=== PATIENT | male | born 1950 | race Caucasian/White ===

== ENCOUNTER → 2017-01-08 | Outpatient (CLI) | payer MEDICARE ==
--- NOTE | 2017-01-08 09:50 | US ---
EXAMINATION TYPE: US abdomen limited DATE OF EXAM: 01/08/2017 COMPARISON: NONE CLINICAL HISTORY: R94.5 Abnormal results of liver function studies. Elevated LFT's, pt states ETOH ab use EXAM MEASUREMENTS: Liver Length: 17.7 cm Gallbladder Wall: 0.7 cm CBD: 0.5 cm Right Kidney: 12.5 x 5.3 x 5.0 cm Pancreas: Obscured by bowel gas Liver: Left lobe enlarged, heterogeneous, lobulated contour compatible with probable cirrhosis Gallbladder: Gallstones with thickened wall Evidence for sonographic Lion's sign: No CBD: wnl Right Kidney: wnl Moderate ascites present IMPRESSION: 1. Cirrhotic liver disease. 2. Gallstones without wall thickening is nonspecific. 3. Ascites.
== END | disposition home or self-care (01) ==
LOC: RADUSWWP 09:20
PROVIDERS: ATTEND Family Medicine
DX: K74.60 Unspecified cirrhosis of liver (principal); R18.8 Other ascites; K80.80 Other cholelithiasis without obstruction
CPT/HCPCS: 76705

== ENCOUNTER → 2018-05-27 | Outpatient (CLI) | payer MEDICARE ==
--- NOTE | 2018-05-27 15:18 | US ---
EXAMINATION TYPE: US liver DATE OF EXAM: 05/27/2018 COMPARISON: US CLINICAL HISTORY: K70.31 Alcoholic cirrhosis of liver with ascites. EXAM MEASUREMENTS: Liver Length: 15.9 cm Gallbladder Wall: 0.2 cm CBD: 0.5 cm Right Kidney: 9.7 x 5.5 x 3.9 cm Pancreas: Obscured by bowel gas Liver: fatty as is hyperechoic to right renal cortex; area of possible focal sparing (hypoechoic to remainder of liver) noted anterior left lobe on images #[id number] through #[id number] Gallbladder: wnl Evidence for sonographic Lion's sign: no CBD: wnl Right Kidney: No hydronephrosis or masses seen No ascites is seen. Liver Vasculature Assessment at [facility] for Cirrhosis Diagnosis: MPV flow is to liver; Common H epatic Artery Flow is to Liver; Hepatic Vein Flow is to IVC. IMPRESSION: 1. Mild fatty infiltration within the liver. No discrete masses are evident. Portal and hepatic arter ial flow appears normal.
== END ==
LOC: RADUSWWP 09:42
PROVIDERS: ATTEND Internal Medicine Gastroenterology
DX: K76.0 Fatty (change of) liver, not elsewhere classified (principal)
CPT/HCPCS: 76705; 93976

== ENCOUNTER → 2018-06-08 | Outpatient (CLI) | payer MEDICARE ==
--- NOTE | 2018-06-08 09:29 | US ---
EXAMINATION TYPE: US duplex aorta DATE OF EXAM: 06/08/2018 COMPARISON: NONE CLINICAL HISTORY: Z13.6 screening for cardiovascular disease. smoker, no symptoms, no family history EXAM MEASUREMENTS: Abdominal Aorta: Proximal: 2.4 x 2.2cm Mid: 2.0 x 2.0cm Distal: 1.3 x 1.4cm Bifurcation: Rt=0.8 Lt=0.8 Aorta is visualized through the bifurcation without aneurysmal change. Adjacent liver is heterogeneou sly hyperechoic suspicious for diffuse fatty infiltration. This is also noted on recent liver ultraso und May 27, 2018. IMPRESSION: No ultrasound evidence for AAA.
--- NOTE | 2018-06-08 10:48 | CTL ---
EXAMINATION TYPE: CT Low Dose Lung DATE OF EXAM ORDERED: 06/08/2018 HISTORY: . Lung cancer screening CT DLP: [address] CTDI: 1.87 mGy Automated exposure control for dose reduction was used. SCREENING VISIT: Initial COMPARISON: None TECHNIQUE: Low dose computed tomography scan was performed through the chest at 1 mm thick sections a nd reconstructed images in the coronal plane at [address] DIAGNOSTIC QUALITY: Limited, but interpretable FINDINGS: LUNG NODULES: None. LUNGS: COPD: Severity: Mild Fibrosis: Severity: None Lymph nodes: There is an enlarged pretracheal measuring 1.1 cm just above the level the regine. Addit ional enlarged adenopathy is not identified. Some fullness is within the right suprahilar region. Gil e underlying 1.6 cm adenopathy may be present. Consider CT chest with contrast for additional evaluat ion. Other findings: None RIGHT PLEURAL SPACE: Effusion: None Calcification: None Thickening: None Pneumothorax: None LEFT PLEURAL SPACE: Effusion: None Calcification: None Thickening: None Pneumothorax: None HEART: Heart Size: Normal Coronary calcification: Moderate Pericardial effusion: None OTHER FINDINGS: Upper abdomen: Normal Bony thorax: Normal Supraclavicular region: Normal Other: The ascending thoracic aorta at the level of the main pulmonary artery is 4.0 cm. The main pul monary artery the bifurcation is 2.8 cm. IMPRESSION: 1. No suspicious lung nodules. 2. Ascending thoracic aortic aneurysm of 4.0 cm. 3. Enlarged pretracheal lymph node measuring 1.1 cm. There may be some right hilar adenopathy present . CT with contrast is recommended for additional adenopathy evaluation at this time. FOLLOW UP CT CHEST RECOMMENDATION: CT chest w con to reevaluate possible right hilar adenopathy. CT LUNG RAD: Lung-Rad 2 Benign Appearance or Behavior for lung findings.
== END | disposition home or self-care (01) ==
LOC: RADCTMAIN 08:20
PROVIDERS: ATTEND Family Medicine
DX: Z12.2 Encounter for screening for malignant neoplasm of respiratory organs (principal); I71.2 Thoracic aortic aneurysm, without rupture; R59.0 Localized enlarged lymph nodes; Z13.6 Encounter for screening for cardiovascular disorders; Z87.891 Personal history of nicotine dependence
CPT/HCPCS: 93979; G0297

== ENCOUNTER → 2018-06-23 | Outpatient (CLI) | payer MEDICARE ==
[2018-06-23 10:21] LABS: Blood Urea Nitrogen 13 mg/dL (9-20)
--- NOTE | 2018-06-23 11:39 | CT ---
EXAMINATION TYPE: CT chest w con DATE OF EXAM: 06/23/2018 COMPARISON: 06/08/2018 HISTORY: abnormal ct low dose scan CT DLP: 419.2 mGycm. Automated Exposure Control for Dose Reduction was Utilized. TECHNIQUE: CT scan of the thorax is performed following with IV Contrast, patient injected with 100 mL of Isovue 300. FINDINGS: LUNGS: Extensive emphysematous changes are seen at the lung apices, a lesser degree within the mid kaylah ngs and lower lungs. This is mixed centrilobular and paraseptal. No suspicious pulmonary mass is seen . No focal consolidation, pleural effusion or pneumothorax. Main tracheobronchial tree is patent. MEDIASTINUM: Mildly enlarged pretracheal lymph node measures 1.1 cm in short axis. Right perihilar co nglomeration of lymph nodes measures approximately 1.4 cm in short axis. Punctate calcifications are seen within the pretracheal lymph node and left hilar lymph nodes. Calcified left hilar granulomas ar e also noted. Severe coronary calcifications are evident. Heart is not enlarged. No pericardial effus ion. The aortic root is mildly aneurysmal measuring 4.2 cm as is the ascending thoracic aorta measuring 4. 0 cm. Descending thoracic aorta and main pulmonary artery are within normal limits of size. OTHER: There is a nodular contour of the liver concerning for underlying hepatocellular disease. Punc dunlap are completely hypoattenuated subcentimeter hepatic lesion is present on image 75 and although t oo small to accurately characterize favored to represent a cyst given its markedly decreased attenuat ion. Simple cyst is seen within the left hepatic lobe that is also subcentimeter. Moderate multilevel degenerative change of the spine is seen. IMPRESSION: 1. There is partial visualization of an infrarenal abdominal aortic aneurysm measuring at least 4.2 x 4.0 cm. CTA abdomen could fully assess this finding. 2. Suspicion for underlying hepatocellular disease, possibly early cirrhosis as there is a nodular co ntour the liver. 3. Ascending thoracic aorta is mildly aneurysmal measuring 4.0 cm. Aortic root is also mildly aneurys mal measuring 4.2 cm. 4. There remains few prominent mediastinal lymph nodes although these are of low suspicion and possib ly reactive. Benign granulomatous change of the left hans is noted. 5. Severe coronary artery calcifications, marker of coronary artery disease. 6. Overall moderate to severe emphysema.
== END | disposition home or self-care (01) ==
LOC: RADCTMAIN 09:38
PROVIDERS: ATTEND Family Medicine
DX: J43.9 Emphysema, unspecified (principal); I25.10 Atherosclerotic heart disease of native coronary artery without angina pectoris; J84.10 Pulmonary fibrosis, unspecified; I71.4 Abdominal aortic aneurysm, without rupture; I71.2 Thoracic aortic aneurysm, without rupture
CPT/HCPCS: 82565; 84520; 71260; 36415; Q9967

== ENCOUNTER → 2018-12-14 | Outpatient (CLI) | payer MEDICARE ==
--- NOTE | 2018-12-14 09:31 | CT ---
EXAMINATION TYPE: CT angio thor/abd aorta DATE OF EXAM: 12/14/2018 COMPARISON: CT chest 06/23/2018 HISTORY: 68-year-old male Aortic aneurysm without rupture TECHNIQUE: Contiguous axial scanning of the chest, abdomen, and pelvis performed without and with IV Contrast, patient injected with 100 mL of Isovue 370. Coronal post sagittal MIP reconstructions performed. 3-D reconstructions generated on a dedicated independent workstation. CT DLP: 995.7 mGycm Automated exposure control for dose reduction was used. FINDINGS: CHEST: The heart is normal size without pericardial effusion. Coronary vessel calcifications are present in remarkable for coronary artery disease. Stable mildly enlarged precarinal lymph node of 1.1 cm. Right hilar lymph node also similar 1.3 cm. Stability suggests a benign etiology. Mild bilateral gynecomastia. Moderate to advanced centrilobular emphysema particularly in the upper lungs. Strandy scarring or atelectasis at the lung bases. No consolidation or pleural effusion. ABDOMEN: Limited arterial phase imaging of the liver, adrenal glands, kidneys, spleen, and pancreas shows no gross abnormal. Gallbladder distended at 1.8 cm wide with layering gravel. No dilated small bowel, free fluid, or free air. No mesenteric or retroperitoneal lymphadenopathy. Mild overall stool burden with sigmoid diverticulosis. No pericolonic inflammatory change. Inferior pelvis is not imaged. VASCULATURE: Aortic root is ectatic at 3.9 cm. Ascending aorta ectatic at 3.7 cm. Bovine configuration to the aortic arch. No evidence for acute intramural hematoma. Mild atherosclerotic arch calcifications are demonstrated. Upper descending thoracic aorta measures 2.9 cm. Aorta at the thoracoabdominal junction measures ectatic at 2.6 cm. Separate takeoff of the left hepatic artery directly from the aorta. There is a replaced right hepatic artery arising from the SMA. [id number] atherosclerotic narrowing at the origin of the right renal artery. 2 left renal arteries are demonstrated. Patent BRANDON. Abdominal aortic aneurysm along the inferior segment measuring 4.5 x 4.0 cm only partially imaged on the patient's 06/23/2017 exam. Aneurysm spans approximately 5.2 cm craniocaudal. Moderate atherosclerotic calcifications continue into the common iliac arteries. Aneurysmal proximal right common iliac artery at 2.2 cm and ectasia of the remainder of the vessel at 1.5 cm. Additional site of aneurysm at the right common iliac artery bifurcation measures 1.9 cm. Ectatic proximal left common iliac artery at 1.7 cm. The remainder of the left common iliac artery is also ectatic at 1.6 cm. No evidence for aortic dissection or acute intramural hematoma. Bones: Osteopenia. Degenerative disc disease and facet arthropathy within the lumbar spine. No osseous destructive process. Bridging anterior endplate spondylosis mid to lower thoracic spine. IMPRESSION: 1. INFRARENAL AAA MEASURING 4.5 X 4.0 CM EXTENDING DOWN TO THE BIFURCATION. 2. ECTATIC AORTIC ROOT AND ASCENDING THORACIC AORTA (MEASURING UP TO 3.9 CM) AND ECTATIC UPPER ABDOMINAL AORTA AT 2.6 CM. SOME VARIANT ANATOMY OF THE ABDOMINAL VISCERAL ARTERIES MENTIONED ABOVE. 3. 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 4. HYDROPIC GALLBLADDER WITH LAYERING GRAVEL. IF RIGHT UPPER QUADRANT PAIN OR CONCERN FOR EARLY ACUTE CHOLECYSTITIS, FOLLOW-UP ULTRASOUND OR HIDA SCAN. 5. COPD WITH MODERATE TO ADVANCED EMPHYSEMA, CAD, SIGMOID DIVERTICULOSIS. MTDD
== END | disposition home or self-care (01) ==
LOC: RADCTMAIN 06:52
PROVIDERS: ATTEND Family Medicine
DX: I77.810 Thoracic aortic ectasia (principal); I77.811 Abdominal aortic ectasia; I72.3 Aneurysm of iliac artery; K82.8 Other specified diseases of gallbladder; J43.9 Emphysema, unspecified; I25.10 Atherosclerotic heart disease of native coronary artery without angina pectoris; K57.30 Diverticulosis of large intestine without perforation or abscess without bleeding
CPT/HCPCS: 71275; 74175

== ENCOUNTER → 2019-05-19 | Outpatient (CLI) | payer MEDICARE ==
--- NOTE | 2019-05-19 09:04 | US ---
EXAMINATION TYPE: US abdomen limited DATE OF EXAM: 05/19/2019 COMPARISON: NONE CLINICAL HISTORY: Alcoholic Cirrhosis K70.31. EXAM MEASUREMENTS: Liver Length: 14.9 cm Gallbladder Wall: 0.3 cm CBD: 0.5 cm Right Kidney: 11.6 x 4.1 x 5.5 cm Pancreas: Obscured by bowel gas Liver: hepatopedal flow . Cirrhotic morphology of the liver. Gallbladder: cholelithiasis, trace amount of pericholecystic fluid Evidence for sonographic Lion's sign: no CBD: wnl Right Kidney: inferior pole obscured by overlying bowel gas IMPRESSION: 1. Cirrhotic morphology of the liver with hepatofugal flow of the portal vein noted. No discrete mass seen on today's exam. 2. Cholelithiasis is seen without sonographic evidence of acute cholecystitis other than a trace amou nt of pericholecystic fluid, likely sequela of the adjacent hepatocellular disease.
== END | disposition home or self-care (01) ==
LOC: RADUSWWP 07:39
PROVIDERS: ATTEND Internal Medicine Gastroenterology
DX: K80.20 Calculus of gallbladder without cholecystitis without obstruction (principal); K74.60 Unspecified cirrhosis of liver
CPT/HCPCS: 76705

== ENCOUNTER 2020-06-05 07:26 | Day surgery (SDC) | payer MEDICARE ==
[2020-05-31 12:35] VITALS: BMI 22.5
[~2020-06-05 07:26] MED LIST: LACTATED RINGERS 1,000 ML IV SCH; LIDOCAINE 1% (10MG/ML) FOR IV START INTRADERMA PRN
[2020-06-05 08:35] VITALS: RESP 16; TEMP 97.6
[2020-06-05] MEDS ORDERED: LIDOCAINE 1% INJ 10MG/ML (20 ML MDV) ONE (09:09)
[2020-06-05] MEDS ORDERED: PROPOFOL 10 MG/ML 20 ML VIAL IV ONE (09:09)
--- NOTE | 2020-06-05 09:34 | P.PCN ---
Date of Procedure: 06/05/20 Procedure(s) Performed: Brief history: Patient is a pleasant scheduled for an elective upper endoscopy as well as colonoscopy as a part of evaluation of prior history of colon polyps and screening for esophageal varices. Patient has history of liver cirrhosis. Procedure performed: Esophagogastroduodenoscopy with biopsy Colonoscopy Preoperative diagnosis: Cirrhosis of the liver/screening for esophageal varices History of colon polyps Anesthesia: MAC Procedure: After informed consent was obtained from the patient was brought into the endoscopy unit and IV sedation was administered by anesthesia under continuous monitoring. Initially upper endoscopy was done. The Olympus GF 160 video endoscope was inserted inserted into the mouth and esophagus intubated without any difficulty and was gradually advanced into the stomach and duodenum and carefully examined. The bulb and second part of the duodenum appeared normal. The scope was then withdrawn into the stomach adequately insufflated with air and upon careful examination the antrum had mild gastritis and biopsies were done from this area. The body, cardia and fundus appeared normal. The scope was then withdrawn into the esophagus. The GE junction was located at 40 cm to the incisors. It appeared regular with no erythema erosions or ulcerations. Rest of the esophagus appeared normal. There was small esophageal varices noted in the distal esophagus. Patient tolerated the procedure well. At this time the patient continued to remain sedation. Initial digital rectal examination was normal. Olympus CF 160 video colonoscope was then inserted into the rectum and gradually advanced to the cecum without any difficulty. Careful examination was performed as the scope was gradually being withdrawn. The prep was excellent. In the cecum there was a 5 mm polyp that was removed by snare polypectomy. The cecum, ascending colon, transverse colon, descending colon, sigmoid colon and rectum appeared normal. Scattered sigmoid diverticulosis seen. Retroflexion was performed in the rectum and no lesions were noted. Patient tolerated the procedure well. Impression: 1. Upper endoscopy revealed small esophageal varices and mild antral gastric. 2. Colonoscopy revealed 5 mm cecal polyp status post polypectomy and scattered sigmoid diverticulosis. Recommendations: Findings of this examination were discussed with the patient as well as her family. He was advised to follow with the biopsy results. He can have a repeat upper endoscopy in 2-3 years and repeat colonoscopy in 5 years.
[2020-06-05 09:55] VITALS: BP 111/68; PULSE 66
== END 2020-06-05 10:29 | disposition home or self-care (01) ==
LOC: ORWHC2ENDO 07:26
PROVIDERS: ATTEND Internal Medicine Gastroenterology
DX: D12.0 Benign neoplasm of cecum (principal); K57.30 Diverticulosis of large intestine without perforation or abscess without bleeding; I85.00 Esophageal varices without bleeding; K29.50 Unspecified chronic gastritis without bleeding; K74.60 Unspecified cirrhosis of liver; Z86.010 Personal history of colon polyps; I10 Essential (primary) hypertension; E78.5 Hyperlipidemia, unspecified; Z90.89 Acquired absence of other organs; F17.210 Nicotine dependence, cigarettes, uncomplicated; Z98.42 Cataract extraction status, left eye; Z98.41 Cataract extraction status, right eye; Z79.82 Long term (current) use of aspirin; Z79.899 Other long term (current) drug therapy; Z88.1 Allergy status to other antibiotic agents
CPT/HCPCS: 88305; 45385; 43239; J2001; J2704

== ENCOUNTER → 2020-06-05 | Outpatient (CLI) | payer MEDICARE ==
--- NOTE | 2020-06-05 09:34 | US ---
EXAMINATION TYPE: US liver DATE OF EXAM: 06/05/2020 COMPARISON: 05/19/[address] 12/14/2018 CLINICAL HISTORY: 69-year-old male K70.31 Alcoholic cirrhosis of liver. No pain. No prior surgeries. Patient states he has a known aneurysm that gets followed up every 6 months. TECHNIQUE: Multiple sonographic images of the right upper quadrant are obtained. FINDINGS: EXAM MEASUREMENTS: Liver Length: 13.1 cm Gallbladder Wall: 0.1 cm CBD: 0.6 cm Right Kidney: 9.8 x 5.6 x 3.9 cm Pancreas: Obscured by bowel gas Liver: Slightly coarsened appearance of the liver. No focal lesion seen. Gallbladder: mobile echogenic foci. Transverse GB measurement = 5.1 cm, mildly dilated. Evidence for sonographic Lion's sign: neg CBD: Upper limits of normal in caliber, normal given patient's age. Right Kidney: No hydronephrosis. Incidental finding: Distal aortic aneurysm= spans 5.3 cm and measures 4.4 x 5.2 cm (versus measureme nts of 4.5 x 4.[address] of 12/14/2018). IMPRESSION: 1. Vascular follow-up for the patient's distal abdominal aortic aneurysm. Current measurements are 5. 2 x 4.4 cm (versus 4.5 x 4.[address] of 12/14/2018). 2. Coarsened hepatic parenchyma in keeping with the patient's known underlying cirrhosis. No sonograp hic evidence for hepatoma. 3. Mildly hydropic gallbladder with layering gravel. Sonographic Lion sign is reportedly negative. Hydropic change may be due to fasting state. Clinically correlate.
== END ==
LOC: RADUSWWP 06:55
PROVIDERS: ATTEND Internal Medicine Gastroenterology
DX: K70.31 Alcoholic cirrhosis of liver with ascites (principal); I71.4 Abdominal aortic aneurysm, without rupture; K82.1 Hydrops of gallbladder
CPT/HCPCS: 76705

== ENCOUNTER → 2020-12-05 | Outpatient (CLI) | payer MEDICARE ==
--- NOTE | 2020-12-05 11:03 | US ---
EXAMINATION TYPE: US liver DATE OF EXAM: 12/05/2020 COMPARISON: Ultrasound 06/05/2020 CLINICAL HISTORY: K70.31 Alcoholic cirrhosis of liver w/ascites. Known cirrhosis, no symptoms EXAM MEASUREMENTS: Liver Length: 16.4 cm Gallbladder Wall: 0.2 cm CBD: 0.6 cm Right Kidney: 11.6 x 4.7 x 4.2 cm Pancreas: not seen due to bowel gas Liver: wnl Gallbladder: dependant layering stones seen Evidence for sonographic Lion's sign: no CBD: wnl Right Kidney: wnl incidental of AAA at distal aorta = 5.5 x 5.3 x 5.0cm, previous US showed measurements at 5.3 x 4.4 x 5.2cm IMPRESSION: 1. Abdominal aortic aneurysm, increasing to greater than 5 cm from previous exam. 2. Hepatomegaly
== END | disposition home or self-care (01) ==
LOC: RADUSWWP 07:36
PROVIDERS: ATTEND Internal Medicine Gastroenterology
DX: R16.0 Hepatomegaly, not elsewhere classified (principal); I71.4 Abdominal aortic aneurysm, without rupture
CPT/HCPCS: 76705

== ENCOUNTER → 2020-12-19 | Outpatient (CLI) | payer MEDICARE ==
[2020-12-19 07:27] LABS: African American GFR (CKD) >90 (>60 ml/min/1.73 sqM); Blood Urea Nitrogen 16 mg/dL (9-20); Non-African American GFR(CKD) >90 (>60 ml/min/1.73 sqM)
--- NOTE | 2020-12-19 11:20 | CT ---
EXAMINATION TYPE: CT angio thor/abd pel aorta DATE OF EXAM: 12/19/2020 COMPARISON: CTA study December 14, 2018 HISTORY: Aortic abdominal aneurysm without rupture CT DLP: 782 mGycm. Automated Exposure Control for Dose Reduction was Utilized. CONTRAST: CTA scan of the thorax, abdomen and pelvis is performed with IV Contrast, patient injected with 100 m l mL of Isovue 370. Aneurysm protocol with 3-D reconstructed images created on an independent worksta tion and reviewed. FINDINGS: Vascular: Satisfactory enhancement of the central pulmonary arteries. Ascending aorta measures up to 4.0 cm in diameter stable from prior. Bovine type arch redemonstrated which is normal variant. Mild p laque without significant stenosis redemonstrated no aneurysm in the descending thoracic aorta. Separate takeoff of the common hepatic artery from the aorta which is normal variant. Patent celiac a rtery and SMA along with right single renal artery and BRANDON. Mild to moderate mixed plaque without sig nificant stenosis. Duplicated left renal artery redemonstrated. Infrarenal AAA redemonstrated measuri ng 4.9 x 4.6 cm current study image 90 increased in size from prior. No aneurysm extension into the c ommon iliac arteries. Length of the aneurysm roughly 5.0 cm similar to prior. Moderate calcified plaque in the common iliac arteries bilaterally. Aneurysm at right-sided bifurcati on up to 1.9 cm axial image 108 is stable. Moderate plaque extends into the internal/external iliac a rteries bilaterally without significant stenosis. Mild plaque common femoral artery bilaterally witho ut significant stenosis. No linear hypodensity to suggest dissection. LUNGS: Moderate to severe underlying emphysematous changes redemonstrated greatest in the upper lungs is redemonstrated. New tiny group of micronodules in the lateral right mid lung axial image 39. Mild bibasilar linear scarring redemonstrated. No pleural effusion or pneumothorax noted. MEDIASTINUM: Stable in size 1.8 x 1.2 cm pericarinal lymph node axial image 31 with occasional puncta te calcific focus. Stable slightly less prominent right hilar lymph node axial image 38. Coronary art carmelina calcification redemonstrated. No cardiomegaly or pericardial effusion is seen. LIVER/GB: Liver is slightly small in size with lobulated contour raising concern for underlying cirrh osis, correlate clinically. Dependent small calcified gallstones. Gallbladder has distended margins b ut no surrounding inflammatory change PANCREAS: No significant abnormality is seen. SPLEEN: No significant abnormality is seen. ADRENALS: No significant abnormality is seen. KIDNEYS: No significant abnormality is seen. BOWEL: Diverticula scattered the colon greatest within sigmoid colon. No CT evidence for acute divert iculitis. GENITAL ORGANS: No gross abnormality seen. LYMPH NODES: No greater than 1cm abdominal or pelvic lymph nodes are appreciated. OSSEOUS STRUCTURES: Mild to moderate multilevel spurring in the spine. Mild to moderate multilevel di sc space narrowing in the lumbar spine greatest at L2-L3 level with vacuum disc phenomenon. OTHER: No significant additional abnormality is seen. IMPRESSION: Enlarging infrarenal AAA up to 4.9 cm currently. Stable ascending aortic aneurysm at 4.0 cm when accounting for technical differences. Stable right common iliac artery aneurysm at 1.9 cm dis tally.
== END | disposition home or self-care (01) ==
LOC: RADCTMAIN 06:34
PROVIDERS: ATTEND Thoracic Surgery (Cardiothoracic Vascular Surgery)
DX: I71.4 Abdominal aortic aneurysm, without rupture (principal); I71.2 Thoracic aortic aneurysm, without rupture; I72.3 Aneurysm of iliac artery
CPT/HCPCS: 82565; 84520; 71275; 36415; 74174; Q9967

== ENCOUNTER → 2021-07-15 | Outpatient (CLI) | payer MEDICARE ==
--- NOTE | 2021-07-15 12:27 | US ---
EXAMINATION TYPE: US liver DATE OF EXAM: 07/15/2021 COMPARISON: CT 12/19/2020 CLINICAL HISTORY: 70-year-old male K70.31 Alcoholic cirrhosis of liver with ascites. TECHNIQUE: Multiple sonographic images of the right upper quadrant are obtained. FINDINGS: EXAM MEASUREMENTS: Liver Length: 8.5 cm Gallbladder Wall: 0.2 cm CBD: 0.4 cm Right Kidney: 10.9 x 5.2 x 4.6 cm Electronic Assembler notes: Severe midline bowel gas Pancreas: Obscured by bowel gas Liver: somewhat limited visualization due to overlying bowel gas, coarsened parenchyma, nodular cont our. Within the left lobe, there is a vascular mass measuring 2.5 x 2.9 x 3.1 Gallbladder: dependant laying stones Evidence for sonographic Lion's sign: no CBD: wnl, limited views Right Kidney: wnl as seen, views somewhat limited due to overlying bowel gas IMPRESSION: 1. Cirrhotic morphology of the liver. Possible development of a 3.1 cm solid mass in the posterior le ft liver lobe. Further liver MRI evaluation recommended. 2. Numerous small layering gallstones. No biliary ductal dilatation.
== END | disposition home or self-care (01) ==
LOC: RADUSWWP 10:57
PROVIDERS: ATTEND Internal Medicine Gastroenterology
DX: K74.60 Unspecified cirrhosis of liver (principal); K80.20 Calculus of gallbladder without cholecystitis without obstruction
CPT/HCPCS: 76705

== ENCOUNTER → 2021-07-15 | Outpatient (CLI) | payer MEDICARE ==
--- NOTE | 2021-07-15 13:35 | US ---
EXAMINATION TYPE: US duplex aorta DATE OF EXAM: 07/15/2021 COMPARISON: 12/19/2020 CT and prior ultrasound 06/08/2018 CLINICAL HISTORY: 70-year-old male I71.4 AAA WITHOUT RUPTURE. TECHNIQUE: Multiple sonographic images of the abdominal aorta are obtained. FINDINGS: EXAM MEASUREMENTS: Abdominal Aorta: Proximal: obscured by overlying bowel gas Mid: 3.0 cm Distal: 6.6 cm long aneurysm measuring up to 5.1 x 4.4 cm in caliber. (Versus 5.3 x 4.9 cm on 12/04 CTA) Bifurcation: obscured by overlying bowel gas Furnace Puncher notes: Severe overlying bowel gas technically difficult very limited study. IMPRESSION: 1. Distal abdominal aortic aneurysm likely underestimated at 5.1 x 4.4 cm by ultrasound (measuring 5. 3 x 4.9 cm on the 12/19/2020 CTA). 2. There are exam limitations due to extensive overlying bowel gas.
== END | disposition home or self-care (01) ==
LOC: RADUSWWP 10:58
PROVIDERS: ATTEND Thoracic Surgery (Cardiothoracic Vascular Surgery)
DX: I71.4 Abdominal aortic aneurysm, without rupture (principal)
CPT/HCPCS: 93979

== ENCOUNTER → 2021-07-22 | Outpatient (CLI) | payer MEDICARE ==
--- NOTE | 2021-07-23 05:51 | MR ---
EXAMINATION TYPE: MR abdomen wo/w con DATE OF EXAM: 07/22/2021 COMPARISON: Ultrasound HISTORY: Abnormal imaging CONTRAST: Standard multiplanar, multisequence MRI departmental protocol images were obtained without contrast a nd with 7.5 mL intravenous Gadavist gadolinium contrast. There is decreased signal pattern in the liver on the T2 images and consistent with cirrhosis. There is 3.8 cm rounded mass in the inferior posterior right lobe of the liver. This has enhancement on the contrast images and consistent with a solid tumor. Gallbladder is distended with gallstones. There is 5.5 cm aneurysm of the lower abdominal aorta. Kidn eys show normal size and contour. No hydronephrosis. There is normal enhancement of the kidneys. No s ign of retroperitoneal adenopathy. No ascites. The spleen is intact. Stomach is intact. There is no evidence of pancreatic mass. The bile ducts are not dilated. IMPRESSION: Decreased signal in the liver consistent with cirrhosis. Solid liver mass suggestive of a tumor. No s ignificant change in size allowing for error of measurement compared to the recent ultrasound of 07/15.
== END | disposition home or self-care (01) ==
LOC: RADMRIMAIN 13:22
PROVIDERS: ATTEND Nurse Practitioner Family
DX: K74.60 Unspecified cirrhosis of liver (principal); R16.0 Hepatomegaly, not elsewhere classified
CPT/HCPCS: 74183; A9585

== ENCOUNTER → 2021-09-15 | Outpatient (CLI) | payer MEDICARE ==
[2021-09-15 12:42] LABS: African American GFR (CKD) >90 (>60 ml/min/1.73 sqM); Blood Urea Nitrogen 16 mg/dL (9-20); Non-African American GFR(CKD) >90 (>60 ml/min/1.73 sqM)
--- NOTE | 2021-09-15 22:05 | CT ---
EXAMINATION TYPE: CT chest wo/w con DATE OF EXAM: 09/15/2021 COMPARISON: CT dated 12/19/2020 HISTORY: Liver cell carcinoma CT DLP: 748.3 mGycm Automated exposure control for dose reduction was used. TECHNIQUE: CT scan of the chest is performed without and with IV Contrast, patient injected with 70 mL of Isovue 300. FINDINGS: LUNGS: Marked COPD and emphysematous changes, mainly involving the upper lobes. Bilateral basal pulmo nary fibrotic changes and subsegmental atelectasis with peripheral reticulations. Lingular millimetri c granuloma, stable. No other definite lung nodule or suspicious lung lesion. Patent trachea and main bronchi. No pleural effusion. MEDIASTINUM: 10 mm subcarinal lymph node with 10 mm precarinal lymph node 12 mm right hilar lymph nod e, stable. Other scattered smaller mediastinal lymph nodes without interval progression. No gross car diomegaly. Coronary and arterial atherosclerotic calcification. No pericardial effusion. The pulmonar y trunk measures 3 cm. The ascending aorta measures 4 cm. OTHER: Nodular outline of the liver which may suggest cirrhotic hepatic changes, please correlate th liver function tests and hepatic viral serology. Cholelithiasis. Mild bilateral gynecomastia simon es. Osteopenia. Degenerative changes of the thoracic spine. IMPRESSION: COPD changes as described above. No definite suspicious lung lesion identified. Incidental findings a s described above.
== END | disposition home or self-care (01) ==
LOC: RADCTMAIN 12:07
PROVIDERS: ATTEND Internal Medicine Transplant Hepatology
DX: C22.0 Liver cell carcinoma (principal); J44.9 Chronic obstructive pulmonary disease, unspecified
CPT/HCPCS: 82565; 84520; 71270; 36415; Q9967

== ENCOUNTER → 2022-04-20 | Outpatient (CLI) | payer MEDICARE ==
[2022-04-20 13:07] LABS: African American GFR (CKD) >90 (>60 ml/min/1.73 sqM); Blood Urea Nitrogen 16 mg/dL (9-20); Non-African American GFR(CKD) >90 (>60 ml/min/1.73 sqM)
--- NOTE | 2022-04-20 18:21 | CT ---
EXAMINATION TYPE: CT angio abdomen DATE OF EXAM: 04/20/2022 COMPARISON: 12/19/2020 INDICATION: Follow up for AAA. DLP: 672.8 mGycm, Automated exposure control for dose reduction was used. CONTRAST: 100ml mL of Isovue 370. Study performed without Oral Contrast TECHNIQUE: Axial images were obtained from above the diaphragm to the pubic rami in the axial plane a t 5 mm thick sections. Reconstructed images are reviewed on the computer in the coronal plane. Thre e-D reconstructed images performed on a separate computer by technologist presented. FINDINGS: Limited CT sections are obtained the lung bases. The lung bases are clear. The sinus changes are pr esent CT ABDOMEN: Liver: Normal Spleen: Normal Pancreas: Normal Adrenal glands: The adrenal glands are normal. Gallbladder: Gallstones are present. Kidneys: No masses are evident. No hydronephrosis is present. No cysts are present. No renal stone s are evident. Aorta: Vascular calcification is within the aorta. Celiac axis and superior mesenteric arteries are n ormal. There is a hepatic take off from the aorta. Bilateral renal arteries are evident. Duplicatio n on the left. There is an abdominal aortic aneurysm with a greatest AP dimension of 5.6 cm. This has a transverse dimension of 5.2 cm and continues to the bifurcation. (Previous measurements 4.9 x 4.6 cm) The right common iliac artery is prominent at 2.3 cm. (Previous 1.9 cm). Left common iliac artery appears normal. Abdominal aortic Aneurysm begins in the infrarenal region. Iliac vessels are tortuou s. There is some aneurysmal dilatation of the distal right common iliac artery at the bifurcation wit h a transverse dimension of 1.9 cm. The abdominal iliac distal aneurysm is stable. Inferior vena cava: Normal. IMPRESSIONS: 1. Increase in size of infrarenal abdominal aortic aneurysm currently 5.6 x 5.2 versus 4.9 x 4.6 pre vious. 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
== END | disposition home or self-care (01) ==
LOC: RADCTMAIN 12:29
PROVIDERS: ATTEND Internal Medicine Cardiovascular Disease
DX: I71.43 Infrarenal abdominal aortic aneurysm, without rupture (principal); I72.3 Aneurysm of iliac artery
CPT/HCPCS: 82565; 84520; 74175; 36415; Q9967

== ENCOUNTER → 2022-09-07 | Outpatient (CLI) | payer MEDICARE ==
[2022-09-07 16:09] LABS: Basophils # (A) 0.05 X 10*3/uL; Eosinophils # (A) 0.21 X 10*3/uL; Eosinophils % (A) 4.1 %; HCT 39.1 %; HGB 13.2 d/dL; Lymphocytes # (A) 1.31 X 10*3/uL; Lymphocytes % (A) 25.4 %; MCH 34.7 pg; MCHC 33.8 d/dL; MCV 102.9 FL; Mean Platelet Volume 10.2 FL; Monocytes # (A) 0.55 X 10*3/uL; Monocytes % (A) 10.7 %; NRBC Per 100 WBC 0 X 10*3/uL; Neutrophils # (A) 3.03 X 10*3/uL; Neutrophils % (A) 58.6 %; Platelet Count 192 X 10*3/uL; RDW 13.3 %; WBC 5.16 X 10*3/uL
[2022-09-07 22:34] LABS: INR 1.01 sec; Prothrombin Time 11.4 sec
[2022-09-08 08:36] LABS: ALT 29 U/L; AST 29 U/L; Albumin 3.8 d/dL; Albumin/Globulin Ratio 1.73 Ratio; Alkaline Phosphatase 102 U/L; Blood Urea Nitrogen 16.8 mg/dL; Calcium 8.9 mg/dL; Carbon Dioxide 24.2 mmol/L; Chloride 108 mmol/L; Globulin 2.2 d/dL; Glucose 130 mg/dL; Potassium 4.2 mmol/L; Sodium 142 mmol/L; Total Bilirubin 0.7 mg/dL
== END | disposition home or self-care (01) ==
LOC: LABWHC1 07:54
PROVIDERS: ATTEND Surgery Vascular Surgery
DX: Z01.812 Encounter for preprocedural laboratory examination (principal); I71.40 Abdominal aortic aneurysm, without rupture, unspecified; I45.10 Unspecified right bundle-branch block; R94.31 Abnormal electrocardiogram [ECG] [EKG]
CPT/HCPCS: 36415; 80053; 85025; 85610; 86850; 86900; 86901; 93005

== ENCOUNTER → 2023-04-30 | Outpatient (CLI) | payer MEDICARE ==
--- NOTE | 2023-05-03 11:54 | PE ---
EXAMINATION TYPE: PET CT fusion skull to thigh DATE OF EXAM: 04/30/2023 COMPARISON: 04/07/2023 CT chest Prior PET/CT: No prior PET/CT at this location HISTORY: Liver cancer TECHNIQUE: Following the intravenous administration of 10.80 mCi of F-18 FDG, whole body images are performed from the skull base to the midthigh. Images are reviewed on the computer in the coronal, a xial, and sagittal planes. Reconstructed rotating images are created on independent workstation and reviewed on the computer. A localization and attenuation correction CT is performed in conjunction with the PET scan. DLP: 353.51 mGycm SCAN: Subsequent Blood glucose: 102 mg/dL Average Mediastinum SUV: 2.18 Average Liver SUV: 2.95 FINDINGS: NECK: No abnormal uptake THORAX: There is a punctate focus of radiotracer within the anterior left mid lung image 121, SUV 5.5 2. This correlates with a small nodule. No abnormal uptake within the mediastinum. ABDOMEN: No abnormal uptake. Suspicious uptake within the liver is not identified. There is low signa l within the hypoechoic dense area within the right tip of the liver. PELVIS: No abnormal uptake OSSEOUS STRUCTURES: There is focal radiotracer within an anterior lateral right lower rib, image 148, SUV 4.82. An additional focus of radiotracer within the rib is on the lateral right lower ribs, imag e 164, SUV 2.6. LOCALIZATION CT: Prior aneurysm repair is evident. Emphysematous changes are within the lung hanna. COMPARISON: Prior left basilar infiltrates have largely resolved. No suspicious uptake. IMPRESSION: 1. Left lung nodule with elevated tracer uptake compatible with neoplasm. 2. Uptake within repair of right lateral lower lobe ribs. Differential could include metastatic disea se. This is somewhat higher than expected for posttraumatic changes such as from biopsy. 3. No suspicious uptake identified within the liver
== END | disposition home or self-care (01) ==
LOC: RADPETMAIN 11:02
PROVIDERS: ATTEND Internal Medicine Hematology & Oncology
DX: R91.1 Solitary pulmonary nodule (principal); C22.0 Liver cell carcinoma
CPT/HCPCS: 78815; A9552

== ENCOUNTER 2023-06-18 08:59 | Day surgery (SDC) | payer MEDICARE ==
[2023-06-18] MEDS: LACTATED RINGERS 1,000 ML IV SCH (09:32)
[2023-06-18 09:46] VITALS: RESP 16; TEMP 97
[2023-06-18] MEDS ORDERED: LIDOCAINE 1% INJ 10MG/ML (20 ML MDV) ONE (10:15)
[2023-06-18] MEDS ORDERED: PROPOFOL 10 MG/ML 20 ML VIAL IV ONE (10:15)
--- NOTE | 2023-06-18 10:25 | P.PCN ---
Date of Procedure: 06/18/23 Procedure(s) Performed: BRIEF HISTORY: Patient is a 72-year-old, pleasant, male scheduled for an upper endoscopy as a part of screening for esophageal varices. He was diagnosed with the liver cirrhosis 5 years ago.. PROCEDURE PERFORMED: Esophagogastroduodenoscopy. PREOPERATIVE DIAGNOSIS: History of liver cirrhosis screening for esophageal varices. IV sedation per anesthesia. PROCEDURE: After informed consent was obtained, the patient was brought into the endoscopy unit. IV sedation was administered by Anesthesia under continuous monitoring. Initially the Olympus GIF-140 video endoscope was inserted into the mouth. Esophagus intubated without any difficulty. It was gradually advanced into the stomach and duodenum and carefully examined. The bulb and the second part of the duodenum appeared normal. The scope at this time was withdrawn to the stomach, adequately insufflated with air, and upon careful examination, mucosa of the antrum, had mild gastritis. Mucosa of the body, cardia and the fundus appeared normal. No gastric varices identified. The scope was then withdrawn into the esophagus. The GE junction was located at 39 cm from the incisors. The esophagus appeared normal. There were no erosions or ulcerations seen. There were very small distal esophageal varices identified with no red bean rai and the patient tolerated the procedure well. IMPRESSION: 1. Small distal esophageal varices with no evidence of das spots or red bean rai. 2. No evidence of gastric varices 3.. Mild gastritis RECOMMENDATIONS: The findings of this examination were discussed with the patient as well as his family. He was advised to have a repeat upper endoscopy in 2 years to screen for esophageal varices.
[2023-06-18 11:14] VITALS: BP 106/57; PULSE 59
== END 2023-06-18 11:14 | disposition home or self-care (01) ==
LOC: ORWHC2ENDO 08:59
PROVIDERS: ATTEND Internal Medicine Gastroenterology
DX: K29.50 Unspecified chronic gastritis without bleeding (principal); K74.60 Unspecified cirrhosis of liver; I10 Essential (primary) hypertension; E78.5 Hyperlipidemia, unspecified; Z79.82 Long term (current) use of aspirin; Z90.89 Acquired absence of other organs; Z98.41 Cataract extraction status, right eye; Z98.42 Cataract extraction status, left eye; Z98.890 Other specified postprocedural states
CPT/HCPCS: 43235; J2001; J2704

== ENCOUNTER → 2023-08-25 | Outpatient (CLI) | payer MEDICARE ==
[2023-08-25 10:37] LABS: African American GFR (CKD) >90 (>60 ml/min/1.73 sqM); Blood Urea Nitrogen 13 mg/dL (9-20); Non-African American GFR(CKD) >90 (>60 ml/min/1.73 sqM)
--- NOTE | 2023-08-26 17:36 | CT ---
EXAMINATION TYPE: CT chest w con CT DLP: 305.8 mGycm, Automated exposure control for dose reduction was used. DATE OF EXAM: 08/25/2023 11:20 AM COMPARISON: CT 04/30/2023. CLINICAL INDICATION:Male, 72 years old with history of R91.1 SOLITARY PULMONARY NODULE; PHH, Solitary pulmonary nodule. TECHNIQUE: Multiple axial images were obtained through the chest. Sagittal and coronal reformats were created for review. Contrast used:100ml mL of Isovue 370 with IV Contrast (None if empty) Oral contrast used: (None if empty) FINDINGS: LUNGS/ PLEURA: Increasing size of left lung nodule measuring 12 mm in today's exam previously 10 on moderate centrilobular and paraseptal emphysema changes. Few right lower lobe superior segme nt airspace opacities series 6 image 46. AIRWAY: Patent and unremarkable. HEART: Size within normal limits. MEDIASTINUM: Prominent right low paratracheal lymph node measuring 13 mm in short axis. VASCULATURE: No aortic aneurysm. MUSCULOSKELETAL: No acute osseous abnormalities SOFT TISSUES/LYMPH NODES: Unremarkable. LOWER NECK: No significant findings. UPPER ABDOMEN: Nodular contour to liver with caudate lobe hypertrophy. IMPRESSION: 1. Increasing size of left upper lung pulmonary nodule concerning for malignancy. 2. Airspace opacities in the right lower lobe superior segment medially correlate for pneumonia 3. Moderate emphysema. 4. Hepatic cirrhosis suggested.
== END | disposition home or self-care (01) ==
LOC: RADCTMAIN 09:53
PROVIDERS: ATTEND Internal Medicine Critical Care Medicine
DX: R91.1 Solitary pulmonary nodule (principal); J43.9 Emphysema, unspecified
CPT/HCPCS: 82565; 84520; 71260; 36415; Q9967

== ENCOUNTER → 2023-08-25 | Outpatient (CLI) | payer MEDICARE ==
--- NOTE | 2023-08-26 17:43 | CT ---
EXAMINATION TYPE: CT angio abdomen pelvis CT DLP: 920.3 mGycm, Automated exposure control for dose reduction was used. DATE OF EXAM: 08/25/2023 11:22 AM COMPARISON: 04/30/2023 CLINICAL INDICATION:Male, 72 years old with history of I71.9; [facility], Follow up for abdominal aortic ane urysm. TECHNIQUE: Multiple thin slice sub-millimeter images were obtained after administration of contrast. 3-D reconstructed images and maximum intensity projection images were obtained. CT angio abdomen pel vis CT Contrast: Contrast used:100ml mL of Isovue 370 with IV Contrast, Oral contrast used: without Oral Contrast None FINDINGS: CTA Abdomen and pelvis: No evidence for intraluminal hematoma on noncontrast imaging. There is aortob iiliac stent graft. Stent graft appears patent. Excluded lumen measuring up to 6.4 cm. No evidence fo r endoleak. LOWER CHEST: No evidence of focal consolidation, pneumothorax or pleural effusion. LIVER: Nodular contour to liver with caudate lobe hypertrophy Exophytic cyst off the inferior aspect of the segment 6. r measuring 52 Hounsfield units and up 60 x 35 x 55 mm GALLBLADDER AND BILE DUCTS: Multiple gallstones layering the gallbladder lumen. PANCREAS: Unremarkable. SPLEEN: Unremarkable. ADRENAL GLANDS: Unremarkable. KIDNEYS AND URETERS: No evidence of hydronephrosis or renal calculus. The ureters are unremarkable. PELVIS BLADDER: Unremarkable REPRODUCTIVE: Unremarkable. ABDOMEN & PELVIS STOMACH AND BOWEL: No evidence of bowel obstruction. PERITONEUM: No evidence of pneumoperitoneum or free fluid. VASCULATURE: No evidence of aortic aneurysm. MUSCULOSKELETAL: No acute osseous abnormalities, moderate degeneration changes of the hips with osteo phyte formation and joint space narrowing and subchondral cystic change. LYMPH NODES: No gross evidence for lymphadenopathy. SOFT TISSUE/ABDOMINAL WALL: Unremarkable IMPRESSION 1. Aortobiiliac stent graft is patent. 2. No evidence for additional aneurysm, dissection or occlusion. 3. Hepatic cirrhosis with indeterminate lesion inferior liver which is increase in size. No signific ant FDG activity on prior PET however did demonstrate enhancement on 07/22/2021 but there is no subtra ction imaging is limited have some inherent high T1 signal. Follow-up MRI and/or tissue sampling thuy mmended. Given findings in the chest of sob pulmonary nodule finding is suspicious for malignancy. 4. Colonic diverticulosis. 5. Cholelithiasis.
== END | disposition home or self-care (01) ==
LOC: RADCTMAIN 09:59
PROVIDERS: ATTEND Surgery Vascular Surgery
DX: K74.60 Unspecified cirrhosis of liver (principal); K57.30 Diverticulosis of large intestine without perforation or abscess without bleeding; K80.20 Calculus of gallbladder without cholecystitis without obstruction; Z95.828 Presence of other vascular implants and grafts; Z86.79 Personal history of other diseases of the circulatory system
CPT/HCPCS: 74174

== ENCOUNTER 2023-09-09 11:13 | Day surgery (SDC) | payer MEDICARE ==
[~2023-09-09 11:13] MED LIST changes: +fentaNYL (PF) 50 MCG/ML 2 ML AMP IV PRN
[2023-09-09] MEDS: IV FLUID CONTINUATION 1,000 ML IV ONE (11:50)
[2023-09-09] MEDS: LACTATED RINGERS 1,000 ML IV SCH (12:08)
[2023-09-09] MEDS: DEXAMETHASONE SOD PHOSPHATE 4 MG/ML 1 ML VIAL IV ONE (12:14)
[2023-09-09] MEDS: ONDANSETRON 4 MG/2 ML VIAL IVP ONE (12:15)
--- NOTE | 2023-09-09 12:34 | CT ---
EXAMINATION TYPE: CT Chest ION protocol DATE OF EXAM: 09/09/2023 COMPARISON: CT chest 08/25/2023 HISTORY: Pre op bronchoscopy CT DLP: 431.9 mGycm. Automated Exposure Control for Dose Reduction was Utilized. TECHNIQUE: CT scan of the thorax is performed without IV contrast. FINDINGS: LUNGS: Suspicious spiculated left nodule in the left upper lobe, mid left upper lobe is reidentified. The lungs are otherwise grossly clear. There is no pleural effusion or pneumothorax seen. The tr acheobronchial tree is patent. MEDIASTINUM: Lack of IV contrast is noted to limit evaluation for mediastinal and especially hilar ad enopathy. There are no definitive greater than 1 cm hilar or mediastinal lymph nodes. No cardiomega ly or pericardial effusion is seen. OTHER: No additional significant abnormality is seen. IMPRESSION: Suspicious spiculated left nodule in the left upper lobe, mid left upper lobe. Moderate emphysematous change.
[2023-09-09] MEDS ORDERED: SUCCINYLCHOLINE CHLORIDE 200 MG/10 ML VIAL IV ONE (12:35)
[2023-09-09] MEDS ORDERED: ROCURONIUM 10 MG/ML (5 ML VIAL) IV ONE (12:35)
[2023-09-09] MEDS ORDERED: NEOSTIGMINE 1 MG/ML 10 ML VIAL ONE (12:35)
[2023-09-09] MEDS ORDERED: GLYCOPYRROLATE 0.2 MG/ML 2 ML VIAL ONE (12:35)
[2023-09-09] MEDS ORDERED: LIDOCAINE 4% LTA KIT (4 ML) TOPICAL ONE (12:35)
[2023-09-09] MEDS ORDERED: LIDOCAINE 1% INJ 10MG/ML (20 ML MDV) ONE (12:35)
[2023-09-09] MEDS ORDERED: PROPOFOL 10 MG/ML 20 ML VIAL IV ONE (12:35)
--- NOTE | 2023-09-09 13:51 | P.PCN ---
Date of Procedure: 09/09/23 Operative Findings: Operative Findings: Preoperative Diagnosis: Left upper lobe pulmonary nodule, 11 mm Postoperative Diagnosis: Left upper lobe pulmonary nodule, 11 mm Procedure(s) Performed: Flexible bronchoscopy Robotic-assisted bronchoscopy and addition to radial ultrasound evaluation of the left upper lobe nodule, 11 mm in size Robotic-assisted transbronchial needle aspirate, transbronchial biopsies of the left upper lobe nodule in addition to a bronchioloalveolar lavage Anesthesia: SRIKANTHA Surgeon: Datlon Lee Estimated Blood Loss (ml): 0 Pathology: other Condition: stable Disposition: same day Operative Findings: A physical exam was performed. Informed consent was obtained from the patient after explaining all the risks (pneumothorax, life threatening bleeding, infection and adverse effects due to medications), benefits and alternatives to the procedure which the patient appeared to understand and so stated. The patient was connected to the monitoring devices. General anesthesia was induced and the patient was intubated by anesthesia. A final timeout was performed and the procedure confirmed by the attending staff bronchoscopist. The bronchoscope was inserted and the airway examined. The flexible bronchoscope was removed and the robotic bronchoscope was inserted. Registration was completed. I next guided the robotic bronchoscope using the navigation system into the left upper lobe lateral segment. Once in proper position, the bronchoscope was frozen. The radial EBUS probe was placed through the bronchoscope and confirmed abnormal u/s images vs normal lung. A needle was placed through the working channel and under fluoroscopic guidance, we sampled the area thought to have the mass twice. We then used a cloud biopsy pattern with ultrasound confirmation for 2 additional passes with the needle. U/S evaluation was then used to reconfirm location. Forceps were next introduced through working channel and extended the appropriate distance and 3 transbronchial biopsies were performed using fluoroscopic guidance. The u/s probe was then reinserted to confirm location. When confirmed this process was repeated for a total of 8-10 transbronchial biopsies. After reassessment with EBUS, a brush was placed through the extendable working channel for 1 pass with fluoroscopic guidance. U/S evaluation was then used to confirm location. 40ml of saline was then instilled into the area of the lesion. 10cc was aspiratred. The robotic bronchoscope was removed and the airway inspected no evidence of any ongoing endobronchial bleeding. Flex. bronchoscope was inserted and regular suctioning was done. At the completion of the procedure, no residual secretions or bloody material within the airway. The bronchoscope was removed. The patient was extubated. FINDINGS: 1.The airways appeared normal 2 Successful navigation, ultrasonographic identification, and biopsies of left upper lobe nodule 3.The radial ultrasound view was concentric RECOMMENDATIONS: Await pathology and cytology results The referring physician will be alerted to the results when available. The patient was advised to follow up with the referring physician with the biopsy results Patient will be called with results.
--- NOTE | 2023-09-09 13:56 | FL ---
EXAMINATION TYPE: FL bronchoscopy Intraoperative/procedural fluoroscopic services were provided. Tota l fluoroscopy time is 1 minute 6 seconds seconds with a total of 5 submitted images to PACS. Please s ee the operative/procedural note for further details. DAP: 0.7550 Gycm2
[2023-09-09 13:59] VITALS: TEMP 97.5
[2023-09-09 14:24] VITALS: RESP 16
[2023-09-09 15:25] VITALS: BP 133/59; PULSE 56
--- NOTE | 2023-09-09 15:29 | XR ---
EXAMINATION TYPE: XR chest 1V DATE OF EXAM: 09/09/2023 COMPARISON: Correlation CT 08/25/2023 HISTORY: 72 year-old male post biopsy TECHNIQUE: Single frontal view of the chest is obtained. FINDINGS: Heart normal size. No appreciable pneumothorax. Strandy atelectasis left base. Hyperinflat ion. Diffuse interstitial density. More focal density at the left lower lung probably corresponding t o the biopsy site. No pleural effusion. IMPRESSION: 1. COPD. Medium interstitial densities, possible subtle interstitial infiltrate. 2. Focal opacity in the left lower lung likely corresponds to the site of biopsy. No appreciable pneu mothorax.
== END 2023-09-09 15:40 | disposition home or self-care (01) ==
LOC: ORWHC2ENDO 11:13
PROVIDERS: ATTEND Internal Medicine Critical Care Medicine
DX: R91.1 Solitary pulmonary nodule (principal); J44.9 Chronic obstructive pulmonary disease, unspecified; I10 Essential (primary) hypertension; K74.60 Unspecified cirrhosis of liver; F17.200 Nicotine dependence, unspecified, uncomplicated; Z79.899 Other long term (current) drug therapy; Z90.49 Acquired absence of other specified parts of digestive tract; Z88.1 Allergy status to other antibiotic agents
CPT/HCPCS: 87798 ×3; 87496; 87498; 87529; 88108; 88305; 88342; 87502; 87634; 88341; 87070; 87205; 87116; 87102; 87206; 87635; 71045; 71250; 31628; 31629; 31623; 31624; J0330; J1100; J2710; J2405; J2001; J2704; S2900

== ENCOUNTER → 2023-11-15 | Outpatient (CLI) | payer MEDICARE | END | disposition home or self-care (01) | LOC: LABPRL 12:34 | PROVIDERS: ATTEND Internal Medicine Gastroenterology | DX: C22.0 Liver cell carcinoma (principal) | CPT/HCPCS: 80053; 82105; 85025 ==

== ENCOUNTER → 2024-01-05 | Outpatient (CLI) | payer MEDICARE ==
[2024-01-05 12:17] LABS: African American GFR (CKD) >90 (>60 ml/min/1.73 sqM); Blood Urea Nitrogen 10 mg/dL (9-20); Non-African American GFR(CKD) >90 (>60 ml/min/1.73 sqM)
--- NOTE | 2024-01-05 14:38 | CT ---
EXAMINATION TYPE: CT chest abdomen wo/w con CT DLP: 1500.0 mGycm, Automated exposure control for dose reduction was used. DATE OF EXAM: 01/05/2024 1:07 PM COMPARISON: CT chest 09/09/2023, 08/25/2023, CTA abdomen and pelvis 08/25/2023, PET/CT 04/30/2023 CLINICAL INDICATION:Male, 73 years old with history of C34.12 LUNG CANCER, F17.210 NICOTINE DEPENDENC E; PHH, f/u lung and liver ca Technique: Multiple axial images of the chest and abdomen before and after intravenous administration of 100 mL Isovue-300. Oral contrast was administered. Two-dimensional coronal and sagittal reconstru ctions were obtained. Findings: CHEST: LUNGS/ PLEURA: No pleural effusion or pneumothorax. Development of peripheral right upper lobe patchy consolidative opacities. Additionally there is new right upper lobe perihilar and apical consolidati ve opacities with some air bronchograms. Left lower lung calcified granuloma. Moderate centrilobular emphysematous changes. Linear scarring and/or atelectasis within the right lower lobe. Marginal decr ease in size of 1.2 cm left midlung spiculated pulmonary nodule (series 8, image 42), previously oc uring 1.5 cm. AIRWAY: Patent and unremarkable.. HEART: Size within normal limits. No pericardial effusion. Aortic valvular and mitral annulus calcifi cations. Moderate coronary arterial calcifications. MEDIASTINUM: Stable enlarged precarinal lymph node measuring 1.3 cm short axis. Stable enlarged right hilar lymph node measuring 2.0 cm. Additional smaller subcentimeter prominent paratracheal lymph nod es. VASCULATURE: No evidence of intramural hematoma or dissection. Stable aneurysm dilatation of the asc ending thoracic aorta measuring up to 4.1 cm. Aortic root is stable measuring up to 4.2 cm. Descendin g thoracic aorta measures up to 2.7 cm. Bovine aortic arch. Mild atherosclerotic calcification of the aorta and its branches. MUSCULOSKELETAL: No acute osseous abnormalities. No aggressive osseous lesion. SOFT TISSUES/LYMPH NODES: Bilateral gynecomastia. LOWER NECK: No significant findings. ABDOMEN: ABDOMEN LIVER: Nodular contour to the liver with caudate lobe hypertrophy redemonstrated. Stable exophytic lo w-density lesion inferior aspect of segment 6 redemonstrated measuring up to 5.9 cm. GALLBLADDER AND BILE DUCTS: Layering increased densities within the lumen consistent with gallstones are present. No biliary duct dilatation. PANCREAS: Unremarkable. SPLEEN: Unremarkable. ADRENAL GLANDS: Unremarkable. KIDNEYS AND URETERS: No evidence of hydronephrosis or renal calculus. The kidneys enhance symmetrical ly. Contrast is demonstrated within both collecting systems on the delayed phase. STOMACH AND BOWEL: Stomach and duodenum are unremarkable. Enteric contrast reaches the mid small jahaira l. No focal bowel wall thickening or surrounding inflammatory changes. No evidence of bowel obstructi on. PERITONEUM: No evidence of pneumoperitoneum or free fluid. VASCULATURE: No evidence of intramural hematoma or dissection. Postsurgical changes from abdominal ao rtobiiliac stent graft beginning at the aortic hiatus. The aneurysm sac measures 6.4 x 6.3 cm with co ntrast along the outside anterior and right lateral aspect of the stent graft. Not appreciated on non contrast imaging (series 6, image 92). Previously measured 6.1 x 6.1 cm. Stable aneurysm dilatation o f the right common iliac artery measuring up to 2.4 cm with stent in place. MUSCULOSKELETAL: No acute osseous abnormalities. No aggressive osseous lesion. Multilevel degenerativ e disc disease. LYMPH NODES: No evidence for lymphadenopathy. SOFT TISSUE/ABDOMINAL WALL: Unremarkable IMPRESSION: 1. Marginal decrease in size of previously seen left midlung 1.2 cm spiculated pulmonary nodule, pre viously 1.5 cm. Development of patchy reticular and consolidative opacities within the right lung wit h more consolidative appearance within the right apex and right perihilar region. Findings are suspic ious for pneumonia however underlying neoplasm is not excluded. Consider follow-up CT chest in 3 ella hs. 2. Stable nonspecific enlarged mediastinal or right hilar lymph nodes. 3. Moderate COPD changes. 4. Postsurgical changes from patent aortobiiliac stent graft with slight increase in size of yurok aneurysm sac. Evidence of endoleak without definitive source. Probable type II or type III endoleak. Vascular surgery consultation is recommended. Stable aneurysmal dilatation of the right common iliac artery. Additionally stable aneurysm dilatation of the ascending thoracic aorta and aortic root. 5. Hepatic cirrhosis with stable right inferior hepatic lobe 5.9 cm lesion which is most consistent reported liver cancer. No new suspicious hepatic lesions. 6. Cholelithiasis. [facility], , 01/05/2024 2:36 PM
== END | disposition home or self-care (01) ==
LOC: RADCTMAIN 11:35
PROVIDERS: ATTEND Radiology Radiation Oncology
DX: C34.12 Malignant neoplasm of upper lobe, left bronchus or lung (principal); K80.20 Calculus of gallbladder without cholecystitis without obstruction; K74.60 Unspecified cirrhosis of liver; I71.21 Aneurysm of the ascending aorta, without rupture; J44.9 Chronic obstructive pulmonary disease, unspecified; R91.1 Solitary pulmonary nodule; F17.210 Nicotine dependence, cigarettes, uncomplicated
CPT/HCPCS: 36415; 71270; 74170; 82565; 84520

== ENCOUNTER → 2024-05-08 | Outpatient (CLI) | payer MEDICARE ==
[2024-05-08 10:24] LABS: African American GFR (CKD) >90 (>60 ml/min/1.73 sqM); Blood Urea Nitrogen 14 mg/dL (9-20); Non-African American GFR(CKD) >90 (>60 ml/min/1.73 sqM)
--- NOTE | 2024-05-08 11:46 | CT ---
EXAMINATION TYPE: CT chest w con DATE OF EXAM: 05/08/2024 11:06 AM COMPARISON: Chest radiograph from 01/10/2024. Multiple CTs of the chest with most recent on CLINICAL INDICATION: Male, 73 years old with history of C34.12, F17.210; [facility], Follow up for lung canc er. TECHNIQUE: Multiple axial images were obtained through the chest. Sagittal and coronal reformats were created for review. MIP was performed on a separate workstation. Contrast used:100ml mL of with IV Contrast (None if empty) Oral contrast used: (None if empty) CT DLP: 420 mGycm, Automated exposure control for dose reduction was used. FINDINGS: LUNGS/ PLEURA: No focal consolidation, pneumothorax or pleural effusion. Improved aeration of the str eaky atelectasis/scarring in the upper lung. There remains severe emphysema changes throughout the kaylah ng. New Nodular-like area measuring 6 mm series 3 image 23 in the left upper lobe.. Calcified granuloma in the lingula. AIRWAY: Patent and unremarkable. HEART: Size within normal limits lipomatous hypertrophy changes intra-atrial septum. MEDIASTINUM: r right low paratracheal lymph node measuring 11 mm previously 13.5. No enlarging lymph nodes identified. VASCULATURE: No aortic aneurysm. MUSCULOSKELETAL: Moderate disc degeneration changes are present throughout the thoracolumbar spine se condary to osteophyte formation and facet joint arthropathy. SOFT TISSUES/LYMPH NODES: Unremarkable. LOWER NECK: No significant findings. UPPER ABDOMEN: Right hepatic lobe cyst. Nodular contour to the liver. Gallstones layering the gallbla dder lumen. Abdominal stent graft partially visualized and patent. IMPRESSION: 1. There is new 6 mm nodule in the left upper lobe could represent new pulmonary nodule versus scarr ing atelectasis changes.. Attention on follow-up imaging in 3 months to ensure stability. 2. Improved of the lungs on a background of severe emphysema. 3. Dwoa-zr-[id number] arthrosis course of the arterial vasculature. Nodular contour to liver suggestiv e of cirrhosis. 4. Cholelithiasis. 5. Abdominal aortic stent graft partially visualized and patent. 6. Severe coronary artery atherosclerosis. [facility], , 05/08/2024 11:43 AM
== END | disposition home or self-care (01) ==
LOC: RADCTMAIN 09:53
PROVIDERS: ATTEND Radiology Radiation Oncology
DX: C34.12 Malignant neoplasm of upper lobe, left bronchus or lung (principal); I25.10 Atherosclerotic heart disease of native coronary artery without angina pectoris; F17.210 Nicotine dependence, cigarettes, uncomplicated; R91.1 Solitary pulmonary nodule; K80.20 Calculus of gallbladder without cholecystitis without obstruction; J43.9 Emphysema, unspecified; I70.90 Unspecified atherosclerosis
CPT/HCPCS: 82565; 84520; 71260; 36415; Q9967

== ENCOUNTER → 2024-08-17 | Outpatient (CLI) | payer MEDICARE ==
[2024-08-17 10:15] LABS: African American GFR (CKD) >90 (>60 ml/min/1.73 sqM); Blood Urea Nitrogen 13 mg/dL (9-20); Non-African American GFR(CKD) >90 (>60 ml/min/1.73 sqM)
--- NOTE | 2024-08-17 12:57 | CT ---
EXAMINATION TYPE: CT noncontrast chest abdomen pelvis. CT angio thor/abd pel aorta DATE OF EXAM: 08/17/2024 11:21 AM COMPARISON: 01/05/2024. CLINICAL INDICATION: Male, 73 years old with history of C34.90 LUNG CANCER; PHH, Hx of Lung CA. R/O P E. Hx of AAA. TECHNIQUE: Noncontrast CT chest, abdomen, and pelvis followed by CT angiogram chest abdomen pelvis. Coronal and sagittal reconstructions performed. Coronal and sagittal MIP reconstructions also generated. Contrast used:100 ml mL of Isovue 370 with IV Contrast, CT DLP: 2304 mGycm, Automated exposure control for dose reduction was used. 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 Stable mild aneurysm ascending aorta 4.1 cm. Mild atherosclerotic arch calcifications and bovine configuration to the aortic arch. No evidence for acute intramural hematoma. Patient with redemonstrated aortobiiliac endovascular stent graft. [place] sac caliber 7.6 cm versus 7.0 cm, previously. No endoleak identified. 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 Incidental separate takeoff of the common hepatic artery from the aorta. PULMONARY ARTERIAL VASCULATURE: No flattening of the interventricular septum or reflux of contrast in to the hepatic veins. Satisfactory opacification of the pulmonary arterial. No pulmonary embolus is s een. LUNGS/ PLEURA: Moderate to severe emphysematous change throughout. Mild fibrosis at the lung bases wi th mild basilar bronchiolectasis. Most of the previous abnormal consolidation posterior right upper lobe has improved. Some residual pa tchy infiltrate remains at the right apex. Some new focal consolidation measuring 1.9 cm has develope d in the right midlung. Vague patchy infiltrate also noted now at the left midlung. No pleural effusi on. AIRWAY: Patent and unremarkable. HEART: Heart normal size. Three-vessel coronary artery calcifications. No pericardial effusion. MEDIASTINUM: No gross evidence of adenopathy. MUSCULOSKELETAL: No acute osseous abnormalities SOFT TISSUES/LYMPH NODES: Borderline sized precarinal lymph node at 1.0 cm improved from 1.4 cm, prev iously. Mild bilateral gynecomastia. No thoracic lymphadenopathy by CT size criteria. Calcified left hilar lymph nodes compatible with prior granulomatous disease. LOWER NECK: No significant findings. Abdomen: LIVER: Cirrhotic, nodular contour noncontrast and arterial phase imaging shows a stable cyst inferior right liver lobe measuring 6.0 cm. Layering gravel/tiny stones in the gallbladder. No abnormal gallb ladder distention. No biliary ductal dilatation seen. PANCREAS: Unremarkable. SPLEEN: Unremarkable. ADRENAL GLANDS: Unremarkable. KIDNEYS AND URETERS: A 1.2 cm hypodensity anterior left kidney likely underlying cyst. No nephrolithi asis or hydronephrosis seen. PELVIS BLADDER: Unremarkable REPRODUCTIVE: Prostate gland mildly enlarged 4.3 cm wide. ABDOMEN & PELVIS STOMACH AND BOWEL: No evidence of bowel obstruction. Mild stool burden. Mid to distal sigmoid diverti culosis. Probably redundant sigmoid colon. PERITONEUM/RETROPERITONEUM: No evidence of pneumoperitoneum or free fluid. MUSCULOSKELETAL: Moderate to advanced degenerative disc disease lumbar spine. Osteopenia. Moderate de generative change right hip. LYMPH NODES: No gross evidence for lymphadenopathy. SOFT TISSUE/ABDOMINAL WALL: Partially visualized right-sided scrotal hydrocele. IMPRESSION: 1. No evidence for aortic dissection or pulmonary embolus. 2. 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 Mild aneurysm ascending aorta uncha nged at 4.1 cm. 3. Previous aortobiiliac endovascular stent graft. [place] sac caliber is stable to minimally larger a t 7.6 cm versus 7.0 cm, previously. Ongoing follow-up as clinically indicated. No endoleak identified . 4. 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 5. COPD with advanced emphysema. Interval improvement in the previous right upper lobe pneumonia. How ever, there is some residual infiltrate at the right apex and suggestion of early, new developing inf iltrate at the left midlung. A 1.9 cm nodular area has also developed at the right midlung. 3 month f ollow-up CT after appropriate treatment to assess for clearance. 6. Cirrhotic morphology of the liver. Cholelithiasis. Sigmoid diverticulosis. Partially visualized ri ght sided scrotal hydrocele. [facility], , 08/17/2024 12:55 PM
== END | disposition home or self-care (01) ==
LOC: RADCTMAIN 09:33
PROVIDERS: ATTEND Internal Medicine Critical Care Medicine
DX: C34.90 Malignant neoplasm of unspecified part of unspecified bronchus or lung (principal); J44.9 Chronic obstructive pulmonary disease, unspecified; J43.9 Emphysema, unspecified; K80.20 Calculus of gallbladder without cholecystitis without obstruction; K57.30 Diverticulosis of large intestine without perforation or abscess without bleeding; N43.3 Hydrocele, unspecified; J18.9 Pneumonia, unspecified organism; I72.8 Aneurysm of other specified arteries; K74.60 Unspecified cirrhosis of liver
CPT/HCPCS: 82565; 84520; 71275; 36415; 74174; Q9967